=== PATIENT | male | born 1990 | race Caucasian/White ===

== ENCOUNTER 2016-05-10 10:26 | Inpatient (IN) | payer MEDICAID, OTHER ==
[~2016-05-10] VITALS: Ht 182.9 cm; Wt 89.8 kg
[2016-05-10 12:37] LABS: BASOPHILS % (AUTO) 0.4 % (0.0-2.0); EOSINOPHILS % (AUTO) 0.2 % (1.0-6.0); HEMATOCRIT 45.7 % (41-53); HEMOGLOBIN 15.1 g/dL (13.5-17.5); LYMPHOCYTES # (AUTO) 1.6 K/uL (1.0-4.8); LYMPHOCYTES % (AUTO) 25.9 % (22.0-44.0); MEAN CORPUSCULAR HEMOGLOBIN 29.1 pg (26.0-34.0); MEAN CORPUSCULAR HGB CONC 33.1 G/dL (31.0-37.0); MEAN CORPUSCULAR VOLUME 88 fL (80-100); MONOCYTES # (AUTO) 0.4 K/uL (0.1-1.0); MONOCYTES % (AUTO) 6.3 % (2.0-9.0); NEUTROPHILS # (AUTO) 4.2 K/uL (1.8-7.7); NEUTROPHILS % (AUTO) 67.2 % (40.0-70.0); PLATELET COUNT (AUTO) 182 K/uL (150-450); RED CELL DISTRIBUTION WIDTH 13.4 % (11.5-14.5); WHITE BLOOD COUNT (AUTO) 6.3 K/uL (4.5-11.0)
[2016-05-10 12:38] LABS: ANION GAP 9 mmol/L (8-16); CARBON DIOXIDE 29 mmol/L (22-29); CHLORIDE 104 mmol/L (98-107); GLOMERULAR FILTR. RATE CALC > 60 mL/min (>60); POTASSIUM 4.3 mmol/L (3.5-5.1); SODIUM SERUM 142 mmol/L (136-145); UREA NITROGEN, BLOOD 9 mg/dL (7-18)
[2016-05-10 12:46] LABS: ALANINE AMINOTRANSFERASE 18 U/L (12-78); ALBUMIN 4.1 g/dL (3.4-5.0); ASPARTATE AMINOTRANSFERASE 22 U/L (15-37); BILIRUBIN,TOTAL 0.4 mg/dL (0.1-1.0); TOTAL PROTEIN, SERUM 7.8 g/dL (6.4-8.2)
[2016-05-10] MEDS ORDERED: LORazepam 2 MG TABLET PO ONE (13:30)
[2016-05-10] MEDS ORDERED: PROMETHAZINE HCL 25 MG/ML VIAL IM PRN (14:00)
[2016-05-10] MEDS ORDERED: MAG HYDROX/AL HYDROX/SIMETH ES 30 ML SUSPENSION UDCUP PO PRN (14:00)
[2016-05-10] MEDS ORDERED: ZOLPIDEM TARTRATE 10 MG TABLET PO PRN (14:00)
[2016-05-10] MEDS ORDERED: ONDANSETRON HCL 4 MG TABLET PO ONE (15:15)
[2016-05-10 16:00] VITALS: BP 114/75
[2016-05-10] MEDS: HydrOXYzine PAMOATE 50 MG CAPSULE PO PRN (16:13)
[2016-05-10 17:05] VITALS: BP 110/70
[2016-05-10] MEDS: LORazepam 2 MG TABLET PO PRN (17:13)
[2016-05-10 18:00] VITALS: BP 118/78
[2016-05-10 19:05] VITALS: BP 108/76
[2016-05-10 20:46] VITALS: BP 127/85
[2016-05-11] VITALS (7 sets, daily range): BP systolic 102–126; BP diastolic 60–78
[2016-05-11] MEDS: LORazepam 2 MG TABLET PO PRN ×3 (06:56→12:51)
[2016-05-11] MEDS ORDERED: ONDANSETRON HCL 4 MG TABLET PO PRN (07:30)
[2016-05-11] MEDS ORDERED: MAGNESIUM HYDROXIDE SUSPENSION 30 ML UDCUP PO PRN (07:30)
[2016-05-11] MEDS ORDERED: IBUPROFEN 600 MG TABLET PO PRN (07:30)
[2016-05-11] MEDS ORDERED: MAG HYDROX/AL HYDROX/SIMETH ES 30 ML SUSPENSION UDCUP PO PRN (07:30)
[2016-05-11] MEDS ORDERED: ACETAMINOPHEN 325 MG TABLET PO PRN (07:30)
[2016-05-11] MEDS ORDERED: PETROLATUM,WHITE 71 GM JELLY TP PRN (07:30)
[2016-05-11] MEDS ORDERED: ALBUTEROL SULFATE HFA 90 MCG/PUFF 8 GM INHALER IH PRN (07:30)
[2016-05-11] MEDS ORDERED: LOPERAMIDE HCL 2 MG CAPSULE PO PRN (07:30)
[2016-05-11] MEDS ORDERED: BACITRACIN 28.4 GM OINTMENT TP PRN (07:30)
[2016-05-11] MEDS ORDERED: CloNIDine HCL 0.1 MG TABLET PO PRN (07:30)
[2016-05-11] MEDS ORDERED: BENZOCAINE/MENTHOL LOZENGE [8 LOZENGES/PACKET] MM PRN (07:30)
[2016-05-11] MEDS: NICOTINE 21 MG/24 HOUR PATCH TD SCH (10:19)
[2016-05-11] MEDS: HydrOXYzine PAMOATE 50 MG CAPSULE PO PRN (10:24)
[2016-05-11] MEDS: IBUPROFEN 600 MG TABLET PO PRN (10:24)
[2016-05-11] MEDS: HALOPERIDOL 5 MG TABLET PO PRN (10:25)
[2016-05-11] MEDS: ESCITALOPRAM OXALATE 10 MG TABLET PO SCH (10:32)
[2016-05-12] MEDS: LORazepam 2 MG TABLET PO PRN (04:48)
[2016-05-12 04:50] VITALS: BP 126/78
[2016-05-12 08:05] VITALS: BP 119/70
[2016-05-12] MEDS: HALOPERIDOL 5 MG TABLET PO PRN (08:08)
[2016-05-12] MEDS: ESCITALOPRAM OXALATE 10 MG TABLET PO SCH (08:09)
[2016-05-12] MEDS: HydrOXYzine PAMOATE 50 MG CAPSULE PO PRN (08:10)
[2016-05-12] MEDS: NICOTINE 21 MG/24 HOUR PATCH TD SCH (08:14)
[2016-05-12] MEDS ORDERED: ESCI10TA PO (13:59)
[2016-05-12 14:02] VITALS: BP 136/77
[2016-05-12] MEDS: IBUPROFEN 600 MG TABLET PO PRN (14:02)
== END 2016-05-12 14:20 | disposition home or self-care (01) | DRG 751 ==
LOC: EMS 10:27 → EEVIPCON 10:27 → 3EC 14:43
DX: F33.2 Major depressive disorder, recurrent severe without psychotic features (principal); R45.851 Suicidal ideations; F17.210 Nicotine dependence, cigarettes, uncomplicated; G47.00 Insomnia, unspecified; K21.9 Gastro-esophageal reflux disease without esophagitis; F11.10 Opioid abuse, uncomplicated; M54.5 Low back pain; Z71.6 Tobacco abuse counseling; Z91.5 Personal history of self-harm; Z71.51 Drug abuse counseling and surveillance of drug abuser
CPT/HCPCS: 99285; G0480; J3535; Q0162